=== PATIENT | female | born 1985 | race Caucasian/White ===

== ENCOUNTER → 2016-09-03 | Outpatient (CLI) | payer MEDICAID | LOC: FIMAGING 13:28 | PROVIDERS: ATTEND Midwife | DX: Z34.02 Encounter for supervision of normal first pregnancy, second trimester (principal); Z3A.20 20 weeks gestation of pregnancy ==

== ENCOUNTER 2017-01-28 09:50 | Inpatient (IN) | payer MEDICAID ==
[2017-01-28] MEDS ORDERED: TERBUTALINE SULFATE 1 MG/ML VIAL IV PRN (10:41)
[2017-01-28] MEDS ORDERED: EPSOM SALT 454 GM TP PRN (10:41)
[2017-01-28] MEDS ORDERED: OLIVE OIL 118 ML BTL MISC PRN (10:41)
[2017-01-28] MEDS ORDERED: OXYTOCIN/RINGERS LACTATE 1,000 ML IV PRN (10:41)
[2017-01-28] MEDS ORDERED: LR 1,000 ML IV PRN (10:41)
[2017-01-28] MEDS ORDERED: LR 500 ML IV PRN (10:41)
[2017-01-28] MEDS ORDERED: OXYTOCIN/RINGERS LACTATE 500 ML IV SCH ×2 (11:00→13:30)
[2017-01-28 11:36] LABS: % IMMATURE GRANULYOCYTES 0.9 % (0.0-1.1); ABSOLUTE IMMATURE GRANULOCYTES 0.12 10^3/uL (0.00-0.10); ADD DIFF? NO; ADD MORPH? NO; ADD SCAN? NO; ATYPICAL LYMPHOCYTE FLAG 0 (0-99); FRAGMENT RBC FLAG 0 (0-99); HEMOGLOBIN 12.6 g/dL (12.6-16.3); LEFT SHIFT FLG 0 (0-99); LIPEMIA HEMOLYSIS FLAG 90 (0-99); MEAN CELL HEMOGLOBIN 29.7 pg (27.9-34.1); MEAN CELL HEMOGLOBIN CONCENTR. 34.1 g/dL (32.4-36.7); MEAN CELL VOLUME 87.3 fL (81.5-99.8); MEAN PLATELET VOLUME 10.9 fL (8.7-11.7); PLATELET CLUMPS FLAG 0 (0-99); PLATELET COUNT 184 10^3/uL (150-400); RED BLOOD CELL COUNT 4.24 10^6/uL (4.18-5.33); RED CELL DISTRIBUTION WIDTH 13.6 % (11.5-15.2)
--- NOTE | 2017-01-28 13:13 | OBPROG ---
OBG Labor Progress Note Assessment/Plan: Assessment: cat 1 fhr denies pain exam 3-4/80/-1 cephalic arom clear fluid pitocin infusing at 4 mu denies pih symptoms early labor pih labs Plan:pitocin per protocol, expect consult dr. Canchola as needed for poc 01/28/17 13:11 Subjective: Denies pain. Denies PIH symptoms. Elevated bp in office and on the deck. Objective: 01/28/17 11:10 Patient ABO/Rh A NEGATIVE 01/28/17 11:10 - SVE Dilation (cm): 3 Effacement (%): 80 Station: -1 - Procedures Non-surgical Procedures: Amniotomy (clear fluid) Oxytocin Orders Assessment - Pre-Induction/Augmentation Assessment Gestational Age: 41 week(s) and 0 day(s) ICD10 Worksheet Patient Problems: Problems Problem Status Onset IOL oligohydramnios Acute
[2017-01-28 13:26] LABS: ALANINE AMINOTRANSFERASE 36 IU/L (9-52); ASPARTATE AMINOTRANSFERASE 26 IU/L (14-46); BILIRUBIN,TOTAL 0.3 mg/dL (0.1-1.4); BILIRUBIN-CONJUGATED 0.2 mg/dL (0.0-0.5); BILIRUBIN-UNCONJUGATED 0.1 mg/dL (0.0-1.1); CREATININE 0.6 mg/dL (0.6-1.0); GLOMERULAR FILTRATION RATE > 60; LACTATE DEHYDROGENASE 439 IU/L (313-618); URIC ACID 4.4 mg/dL (2.5-6.8)
[2017-01-28] MEDS ORDERED: AMMONIA AROMATIC 1 EACH AMP IH ONE (14:38)
[2017-01-28] MEDS ORDERED: OLIVE OIL 118 ML BTL ONE (14:38)
[2017-01-28] MEDS ORDERED: TERBUTALINE SULFATE 1 MG/ML VIAL ONE (14:38)
[2017-01-28] MEDS ORDERED: OXYTOCIN 10 UNIT/ML VIAL ONE (14:38)
[2017-01-28] MEDS ORDERED: LIDOCAINE 1% 300 MG/30 ML SDV ONE (14:38)
[2017-01-28] MEDS ORDERED: MISOPROSTOL 200 MCG TAB ONE (14:39)
--- NOTE | 2017-01-28 15:06 | GHP ---
[f rep st] HISTORY AND PHYSICAL DATE OF ADMISSION: 01/28/2017 HISTORY OF PRESENT ILLNESS: Patient is a 31-year-old, 1, para 0, with an EDC of 01/21/2017 who is at 41 weeks today who comes into the office for an NST which was reactive and reassuring, an KIRK which showed maximum vertical pocket at one point for oligohydramnios. States feeling positive movement. Denies leaking. Denies cramping. Patient has been receiving care through [facility] since 35-4/7 weeks. Transfers care from [facility]. MEDICAL HISTORY: Anemia, pescatarian. SURGICAL HISTORY: Left hand, skateboarding at age 26. Left hand cramps noted. GYNECOLOGICAL HISTORY: Positive HPV in 2016. Occasional yeast. Colpo in 2015. RePap in 1 year. SOCIAL HISTORY: Patient is to [place]. Denies drug use. Denies smoking history. No alcohol with the . FAMILY HISTORY: Noncontributory. LABS: Patient is A negative. Antibody negative. RPR is nonreactive. Rubella is low positive. Will give rubella at delivery. Hepatitis is negative. HIV is negative. Trio screen is negative. Declined the standard panel. TSH on 09/2016 was 3.27. Pap, gonorrhea, and chlamydia were negative. AFP was declined, and emilie was negative. 1-hour GTT was within normal limits at 110. GBS was negative. PHYSICAL ASSESSMENT: GENERAL: Patient is awake, alert, oriented x3. LUNGS: Clear bilaterally. ABDOMEN: Bowel sounds are positive in all 4 quadrants. EXTREMITIES: DTRs are 1+ bilaterally with no clonus. Homans sign is negative. Pitocin is infusing at 4 milliunits with assessment. AROM for clear fluid. Patient, at this time, was 3-4 cm, 75% effaced, -1 station, and cephalic. The patient agreed to plan of care. Blood pressure was elevated in the office as well as down in Labor and Delivery. PIH labs were completed. All of those labs were within normal limits. PLAN OF CARE: 1. GBS negative. 2. Induction of labor for oligohydramnios. 3. Consult physician as needed for plan of care. 4. Risks, benefits, and alternatives discussed with patient. Patient is in agreement with plan of care. /[id number]/MODL MTDD
--- NOTE | 2017-01-28 18:06 | OBPROG ---
OBG Labor Progress Note Assessment/Plan: Assessment: IUP at 41 wks oligohydramnios induction on pit Plan: cont pit, clear fluid 01/28/17 18:03 Subjective: pt doing ok. still working through ctxns - more pressure in back. Objective: 01/28/17 11:10 01/28/17 13:00 Patient ABO/Rh A NEGATIVE 01/28/17 11:10 Uric Acid 4.4 mg/dL (2.5-6.8) 01/28/17 13:00 Total Bilirubin 0.3 mg/dL (0.1-1.4) 01/28/17 13:00 Conjugated Bilirubin 0.2 mg/dL (0.0-0.5) 01/28/17 13:00 Unconjugated Bilirubin 0.1 mg/dL (0.0-1.1) 01/28/17 13:00 AST 26 IU/L (14-46) 01/28/17 13:00 ALT 36 IU/L (9-52) 01/28/17 13:00 Lactate Dehydrogenase 439 IU/L (313-618) 01/28/17 13:00 - SVE Dilation (cm): 5 Effacement (%): 90 Station: 0 Brown Current Contraction Pattern: Regular (q 3-4 min on pit 8 mu/min) FHR (bpm): 130 FHR Pattern Variability: Moderate Membranes: AROM Amniotic Fluid Color: Clear - Procedures Non-surgical Procedures: Amniotomy (clear fluid) Oxytocin Orders Assessment - Pre-Induction/Augmentation Assessment Gestational Age: 41 week(s) and 0 day(s) ICD10 Worksheet Patient Problems: Problems Problem Status Onset IOL oligohydramnios Acute
[2017-01-28] MEDS ORDERED: fentaNYL 2MCG/ML/BUP 0.1% RTU 100 ML BAG EP ONE (22:12)
[2017-01-28] MEDS ORDERED: BUPIVACAINE 0.25% 30 ML SDV ONE (22:12)
[2017-01-28] MEDS ORDERED: PHENYLEPHRINE HCL 100 MCG/ML SYR ONE (22:12)
[2017-01-28] MEDS ORDERED: fentaNYL 100 MCG/2 ML INJ ONE (22:13)
[2017-01-28] MEDS ORDERED: PHENYLEPHRINE HCL 100 MCG/ML SYR IVP PRN (23:16)
[2017-01-28] MEDS ORDERED: ONDANSETRON 4 MG/2 ML VIAL IVP PRN (23:16)
--- NOTE | 2017-01-28 23:16 | PREANESOB ---
Obstetric Pre-Anesthesia Info - General Info Proposed Procedure: Labor and delivery with pitocin. : 1 Para: 0 WBD: 41 - Info Status: Postmature Monitors: External FHR Baseline (bpm): 130 FHR Pattern: Reassuring - Labor Status Cervical Dilation per last OB SVE: 6 Station per last OB SVE: 0 Pitocin: In Use Indications for Labor Analgesia: Induction of Labor, Pain Control Labor Epidural: Proposed Anesthesia ROS: [place] teeth removal. Allergies/Adverse Reactions: Allergy/AdvReac Type Severity Reaction Status Date / Time No Known Allergies Allergy Unverified 01/28/17 10:40 Visit Medications: Generic Name Dose Route Start Last Admin Trade Name Freq PRN Reason Stop Dose Admin Lactated Ringer's 1,000 mls @ 0 mls/hr 01/28/17 10:41 01/28/17 11:23 Lr IV 07/27/17 10:40 1,000 mls PRN PRN Administration SEE PROTOCOL CONDITIONS Protocol Per Protocol Lactated Ringer's 500 mls @ 500 mls/hr 01/28/17 10:41 Lr IV PRN PRN Maternal Hypotension Oxytocin/Lactated Ringer's 1,000 mls @ 150 mls/hr 01/28/17 10:41 Pitocin 20 Units/Lr (Premix) IV PRN PRN Post- bleeding Oxytocin/Lactated Ringer's 500 mls @ 0 mls/hr 01/28/17 11:00 01/28/17 11:23 Pitocin 30 Units/Lr (Premix) IV 07/27/17 10:59 500 mls CONT ОЛЬГА Administration Protocol Per Protocol Oxytocin/Lactated Ringer's 500 mls @ 0 mls/hr 01/28/17 13:30 Pitocin 30 Units/Lr (Premix) IV 07/27/17 13:29 CONT ОЛЬГА Protocol Per Protocol Ibuprofen 600 mg 01/28/17 10:41 Motrin PO 07/27/17 10:40 Q6HRS PRN post , inflammation Magnesium Sulfate 454 gm 01/28/17 10:41 Epsom Salt TP 07/27/17 10:40 Q1H PRN perineal discomfort [place] Oil 118 ml 01/28/17 10:41 Sweet Oil MISC 07/27/17 10:40 ONCE PRN preneal massage Terbutaline Sulfate 0.25 mg 01/28/17 10:41 Brethine IV 07/27/17 10:40 ONCE PRN Tachysystole Discontinued Medications Generic Name Dose Route Start Last Admin Trade Name Sharif PRN Reason Stop Dose Admin Ammonia (Aromatic Spirit) Confirm 01/28/17 14:38 Ammonia Aromatic Administered 01/28/17 14:39 Dose 1 each IH .STK-MED ONE Bupivacaine HCl Confirm 01/28/17 22:12 Sensorcaine 0.25% Sdv Administered 01/28/17 22:13 Dose 30 ml .ROUTE .STK-MED ONE Ephedrine Sulfate Confirm 01/28/17 14:38 Ephedrine Sulfate Administered 01/28/17 14:39 Dose 50 mg .ROUTE .STK-MED ONE Fentanyl Confirm 01/28/17 22:13 Sublimaze Administered 01/28/17 22:14 Dose 100 mcg .ROUTE .STK-MED ONE Fentanyl/Bupivacaine HCl Confirm 01/28/17 22:12 Fentanyl/Bupivacaine/Ns 2 Mcg/Ml 0.1% (Premix Administered 01/28/17 22:13 Dose 100 ml EP .STK-MED ONE Lidocaine HCl Confirm 01/28/17 14:38 Lidocaine Hcl 1% Administered 01/28/17 14:39 Dose 300 mg .ROUTE .STK-MED ONE Misoprostol Confirm 01/28/17 14:39 Cytotec Administered 01/28/17 14:40 Dose 800 mcg .ROUTE .STK-MED ONE [place] Oil Confirm 01/28/17 14:38 Sweet Oil Administered 01/28/17 14:39 Dose 118 ml .ROUTE .STK-MED ONE Oxytocin Confirm 01/28/17 14:38 Pitocin Administered 01/28/17 14:39 Dose 40 unit .ROUTE .STK-MED ONE Phenylephrine HCl Confirm 01/28/17 22:12 Neosynephrine Administered 01/28/17 22:13 Dose 1,000 mcg .ROUTE .STK-MED ONE Terbutaline Sulfate Confirm 01/28/17 14:38 Brethine Administered 01/28/17 14:39 Dose 1 mg .ROUTE .STK-MED ONE - Anesthesia History Response to Local Anesthetics: Normal Anesthesia & Operative History: No Prior Problems Family Anesthesia History: Negative - Social History Substance Use/Abuse: Denies - Focused Exam Blood Pressure: 128/73 Heart Rate: 83 Height/Weight (Nursing): Height 162.56 cm Weight 83.915 kg Physical Exam: Within normal limits. ASA Status: II Labs: 01/28/17 11:10 01/28/17 13:00 Patient ABO/Rh A NEGATIVE 01/28/17 11:10 Uric Acid 4.4 mg/dL (2.5-6.8) 01/28/17 13:00 Total Bilirubin 0.3 mg/dL (0.1-1.4) 01/28/17 13:00 Conjugated Bilirubin 0.2 mg/dL (0.0-0.5) 01/28/17 13:00 Unconjugated Bilirubin 0.1 mg/dL (0.0-1.1) 01/28/17 13:00 AST 26 IU/L (14-46) 01/28/17 13:00 ALT 36 IU/L (9-52) 01/28/17 13:00 Lactate Dehydrogenase 439 IU/L (313-618) 01/28/17 13:00 - Plan Anesthetic Plan: CSE Consent Signed and on Chart: Yes Patient/Guardian Understands and Agrees to Plan: Yes Urgent/Emergent Case: Irina cook completed preop but documented later for safe timely pt care
--- NOTE | 2017-01-28 23:16 | POSTANESTH ---
Post Anesthetic Evaluation Cardiovascular Status: Normal, Stable Respiratory Status: Normal, Stable, Similar to Pre-op Cond. Level of Consciousness/Mental Status: Can Participate in Eval, Alert and Oriented Pain Control: Adequate, Prn Tx Ordered Nausea/Vomiting Control: Adequate, Prn Tx Ordered Complications Possibly Related to Anesthesia: None Noted
[2017-01-28] MEDS ORDERED: fentaNYL 2MCG/ML/BUP 0.1% RTU 100 ML EP SCH (23:30)
[2017-01-28] MEDS ORDERED: LR 500 ML IV SCH (23:30)
[2017-01-29] MEDS ORDERED: ACETAMINOPHEN 325 MG TAB PO PRN (07:33)
[2017-01-29] MEDS: IBUPROFEN 600 MG TAB PO PRN ×3 (07:34→22:04)
[2017-01-29] MEDS ORDERED: MEASLES,MUMPS&RUBELLA VACC/PF 0.5 ML VIAL SC ONE (07:36)
--- NOTE | 2017-01-29 07:42 | OBDEL ---
Info Type: Vaginal GBS+: No Indications for Delivery: Oligohydramnios Vaginal Delivery - Labor and Delivery Onset of Contractions Date: 01/28/17 Onset of Contractions Time: 17:00 Onset of Contractions Type: Induced Rupture of Membranes Date: 01/28/17 Rupture of Membranes Time: 12:30 Rupture of Membranes Type: Artificial Amniotic Fluid Color: Clear Dilation Complete Date: 01/29/17 Dilation Complete Time: 02:22 Placenta Delivery Date: 01/29/17 Placenta Delivery Time: 06:48 Total Hours of Labor: 13 Non-surgical Procedures: Amniotomy (clear fluid) Laceration: 1st Degree (left lateral sidewall, and left periurethral) Repair: 3-0, Vicryl Vaginal Sponge Count Correct: Yes Vaginal Needle Count Correct: Yes Vaginal Sweep Performed: Yes EBL: 400 Delivery Events: None - Medications Labor Augmentation/Induction Methods Used: Pitocin Labor Augmentation/Induction Indication: Other (Specify) (oligohydramnios) [place] Data Brown Delivery Date: 01/29/17 Delivery Time: 06:42 SG: 01/21/17 Gestational Age: 41 week(s) and 1 day(s) Sex of Infant: Male (Chris) Score (1 Min): 8 Score (5 Min): 9 ICD10 Worksheet Patient Problems: Problems Problem Status Onset (spontaneous vaginal delivery) Acute
--- NOTE | 2017-01-29 07:53 | OBGCSDC ---
<Amita Elder - Last Filed: 01/30/17 12:55> General Delivery Information - General Info : 1 Para: 1 Delivery Physician/CNM: Amita Elder Admission Date: 01/28/17 Labs: Patient ABO/Rh A NEGATIVE 01/28/17 11:10 Hct 37.0 % (38.0-47.0) L 01/28/17 11:10 Vaginal - Diagnosis Labor: Induced Presentation at Delivery: Vertex Rupture of Membranes Type: Artificial Amniotic Fluid Color: Clear Laceration: 1st Degree (left lateral sidewall, and left periurethral) Repair: 3-0, Vicryl Delivery Events: None - Operations/Procedures Non-surgical Procedures: Amniotomy (clear fluid) L&D Analgesia/Anesthesia Type: Epidural - Hospital Course Antepartum: transfer from [facility]. uncomplicated until oligo noted on 41 wks appt. Intrapartum: indxn for oligo at 41 wks. pitocin and AROM, good progress and MAJOR. pushed about 1 1/2 hrs : baby with +bld type - getting Rhogam, can't get MMR - Delivery Type: Vaginal Non-surgical Procedures: Amniotomy (clear fluid) EBL: 400 [place] Data Brown Delivery Date: 01/29/17 Delivery Time: 06:42 SG: 01/21/17 Gestational Age: 41 week(s) and 2 day(s) Sex of : Male (Chris) Score (1 Min): 8 Score (5 Min): 9 Discharge Information - Discharge Information Condition: Good <Geraldine Chi - Last Filed: 01/31/17 07:49> General Delivery Information - General Info Labs: Patient ABO/Rh A NEGATIVE 01/29/17 09:10 Hct 26.5 % (38.0-47.0) L D 01/30/17 03:40 Vaginal - Hospital Course : Doing well. Mild cramping. Mod lochia. Voiding without difficulty. No BM. BF well thus far. Discharge Information - Discharge Information Discharge Medications: Iron, Ibuprofen, Vitamins Instruction/Follow Up: Four Weeks, Six Weeks Discharge Physician/CNM: Geraldine Chi
[2017-01-29] MEDS: DOCUSATE SODIUM 100 MG CAP PO PRN (22:04)
[2017-01-29] MEDS: HYDROCODONE/APAP 5/325 TAB PO PRN (22:29)
[2017-01-30] MEDS: HYDROCODONE/APAP 5/325 TAB PO PRN ×4 (03:37→20:57)
[2017-01-30] MEDS: IBUPROFEN 600 MG TAB PO PRN ×3 (06:38→18:47)
[2017-01-30] MEDS: IRON POLYSAC/IRON HEME 28 MG TAB PO SCH ×2 (09:20→20:20)
[2017-01-30] MEDS: DOCUSATE SODIUM 100 MG CAP PO PRN ×2 (09:20→20:20)
--- NOTE | 2017-01-30 13:02 | OBPP ---
Progress Note Assessment/Plan: Assessment: PPD 1 s/p anemia on iron BID rh- and getting Rhogam Rub low immune, can't get MMR Plan: routine care, iron BID 01/28/17 18:03 01/30/17 12:59 Subjective: Pt doing well. Baby has been latching. urinating fine. bld has lessened. bottom sore. using ibu. feeling lightheaded when up - disc anemia. Objective: 01/30/17 03:40 01/28/17 13:00 Patient ABO/Rh A NEGATIVE 01/29/17 09:10 Uric Acid 4.4 mg/dL (2.5-6.8) 01/28/17 13:00 Total Bilirubin 0.3 mg/dL (0.1-1.4) 01/28/17 13:00 Conjugated Bilirubin 0.2 mg/dL (0.0-0.5) 01/28/17 13:00 Unconjugated Bilirubin 0.1 mg/dL (0.0-1.1) 01/28/17 13:00 AST 26 IU/L (14-46) 01/28/17 13:00 ALT 36 IU/L (9-52) 01/28/17 13:00 Lactate Dehydrogenase 439 IU/L (313-618) 01/28/17 13:00 Temp Pulse Resp BP Pulse Ox 36.5 C 97 15 107/67 96 01/30/17 08:00 01/30/17 08:00 01/30/17 08:00 01/30/17 08:00 01/30/17 08:00 Uterine Position/Fundal Height: Umbilicus -1 Uterine Tone: Firm Physical Exam - Physical Exam General Appearance: WD/WN, alert Abdomen: non-tender, soft, other (FF at umb -2, normal lochia) Extremities: non-tender, pedal edema (mild) Skin: normal color, warm/dry Neuro/Psych: alert, normal mood/affect
[2017-01-31] MEDS: IBUPROFEN 600 MG TAB PO PRN ×2 (01:12→09:01)
--- NOTE | 2017-01-31 07:49 | OBPP ---
Progress Note Assessment/Plan: Assessment: 1) s/p PPD # 2 - pt is stable 2) Anemia - pt is asymptomatic \ Plan: Plan for discharge today Instructions reviewed with pt No Rx given Cont PNV, iron and colace Pelvic rest RTC in 4 and 6 weeks for pp visit 01/31/17 07:52 Subjective: Pt seen and examined. Doing well with no complaints. Mild cramping. Mod lochia. Voiding and passing flatus. No BM. BF well thus far. Objective: 01/30/17 03:40 01/28/17 13:00 Patient ABO/Rh A NEGATIVE 01/29/17 09:10 Uric Acid 4.4 mg/dL (2.5-6.8) 01/28/17 13:00 Total Bilirubin 0.3 mg/dL (0.1-1.4) 01/28/17 13:00 Conjugated Bilirubin 0.2 mg/dL (0.0-0.5) 01/28/17 13:00 Unconjugated Bilirubin 0.1 mg/dL (0.0-1.1) 01/28/17 13:00 AST 26 IU/L (14-46) 01/28/17 13:00 ALT 36 IU/L (9-52) 01/28/17 13:00 Lactate Dehydrogenase 439 IU/L (313-618) 01/28/17 13:00 Temp Pulse Resp BP Pulse Ox 36.8 C 97 16 110/68 97 01/30/17 20:59 01/30/17 20:59 01/30/17 20:59 01/30/17 20:59 01/30/17 20:59 Uterine Position/Fundal Height: Umbilicus -2 Uterine Tone: Firm Physical Exam - Physical Exam General Appearance: WD/WN, alert, no apparent distress Respiratory: lungs clear, normal breath sounds Cardiac/Chest: regular rate, rhythm Abdomen: normal bowel sounds, non-tender, soft, flatus (+) Extremities: non-tender, normal inspection Skin: normal color, warm/dry Neuro/Psych: alert, normal mood/affect, oriented x 3
[2017-01-31] MEDS: DOCUSATE SODIUM 100 MG CAP PO PRN (09:01)
[2017-01-31] MEDS: IRON POLYSAC/IRON HEME 28 MG TAB PO SCH (09:01)
[2017-01-31 09:59] VITALS: BP 112/75; PULSE 86; RESP 18; TEMP 98.7; O2SAT 96
== END 2017-01-31 12:25 | disposition home or self-care (01) | DRG 775 ==
LOC: FLD 09:50 → FOB 01-29 10:00
PROVIDERS: ADMIT Advanced Practice Midwife; ATTEND Obstetrics & Gynecology
PROC: 0HQ9XZZ Repair Perineum Skin, External Approach (ICD-10-PCS; principal; 2017-01-28)
PROC: 10907ZC Drainage of Amniotic Fluid, Therapeutic from Products of Conception, Via Natural or Artificial Opening (ICD-10-PCS; principal; 2017-01-28)
PROC: 10E0XZZ Delivery of Products of Conception, External Approach (ICD-10-PCS; principal; 2017-01-28)
PROC: 3E033VJ Introduction of Other Hormone into Peripheral Vein, Percutaneous Approach (ICD-10-PCS; principal; 2017-01-28)
PROC: 3E0234Z Introduction of Serum, Toxoid and Vaccine into Muscle, Percutaneous Approach (ICD-10-PCS; principal; 2017-01-28)
DX: O41.03X0 Oligohydramnios, third trimester, not applicable or unspecified (principal); O48.0 Post-term pregnancy; O70.0 First degree perineal laceration during delivery; O99.02 Anemia complicating childbirth; O26.893 Other specified pregnancy related conditions, third trimester; Z67.91 Unspecified blood type, Rh negative; Z3A.41 41 weeks gestation of pregnancy; Z37.0 Single live birth
CPT/HCPCS: J2370; J2590; J3010; J3105

== ENCOUNTER → 2017-02-03 | Outpatient (CLI) | payer MEDICAID | LOC: FLACT 10:48 | PROVIDERS: ATTEND Obstetrics & Gynecology | DX: Z39.1 Encounter for care and examination of lactating mother (principal) | CPT/HCPCS: G0463 ==

== ENCOUNTER → 2017-02-10 | Outpatient (CLI) | payer MEDICAID | LOC: FLACT 09:55 | PROVIDERS: ATTEND Obstetrics & Gynecology | DX: Z39.1 Encounter for care and examination of lactating mother (principal) | CPT/HCPCS: G0463 ==